=== PATIENT | male | born 1960 | race Caucasian/White ===

== ENCOUNTER → 2018-06-03 06:45 | Outpatient (CLI) | payer OTHER, SELFPAY ==
--- NOTE | 2018-06-03 07:13 | DI.CT.S_ITS ---
PROCEDURE: CT ABDOMEN PELVIS W CON INDICATIONS: recurrent upper left abdominal pain TECHNIQUE: After the administration of oral and intravenous contrast, 5 mm thick sections acquired from the diaphragms to the symphysis. 5 mm thick coronal and sagittal reformats were performed. For radiation dose reduction, the following was used: automated exposure control, adjustment of mA and/or kV according to patient size. COMPARISON: None. FINDINGS: Image quality: Excellent. ABDOMEN: Lung bases: Lung bases are clear. Heart size is normal. Solid organs: Liver is normal in size and enhancement. Diffuse hepatic steatosis is seen. Gallbladder is within normal limits the. Biliary system is non-dilated. Pancreas enhances normally. Spleen is normal in size and enhancement. No adrenal nodules. Kidneys are normal in size and enhancement, without hydronephrosis. Peritoneum and bowel: There is no evidence of obstruction. There is no gastric or small bowel wall thickening. There is a segment of wall thickening and narrowing of the lumen involving mid sigmoid colon in right lower quadrant abdomen. No other area of abnormal colonic wall thickening is noted. Nodes and vessels: No retroperitoneal or mesenteric adenopathy. Aorta and inferior vena cava are normal in caliber. Miscellaneous: No ventral hernias. PELVIS: Genitourinary: Bladder wall thickness is normal. Mildly enlarged prostate gland with mass effect of floor of urinary bladder is seen. Miscellaneous: No inguinal hernias. Mildly prominent bilateral internal lymph nodes are seen measures up to 11 mm in size in right inguinal region. Bones: No suspicious bony lesions. No vertebral body compression fractures. Degenerative disc disease throughout lower thoracic and lumbar spine is seen. IMPRESSION: 1. No finding in upper abdomen to account for patient's clinical history of left upper quadrant abdominal pain. 2. Short segment of wall thickening and narrowing of lumen involving mid sigmoid colon in right lower quadrant. Finding could represent sequela from prior infection or inflammation. Circumferential sigmoid colon wall mass cannot be entirely excluded. GI correlation and possible endoscopic evaluation is recommended. 3. Hepatic steatosis. No discrete hepatic lesion. 4. Mildly enlarged prostate gland with mild mass effect of floor of urinary bladder. Message was left for Dr. Morocho's office at 9:04 AM on 06/03/18. Dictated by: Clint Jo M.D. on 06/03/2018 at 8:42 Approved by: Clint Jo M.D. on 06/03/2018 at 9:04
== END ==
PROVIDERS: Family Provider Family Medicine; PCP Family Medicine; Visit Provider Family Medicine
DX: R10.12 Left upper quadrant pain (principal); K76.0 Fatty (change of) liver, not elsewhere classified; N40.0 Benign prostatic hyperplasia without lower urinary tract symptoms
CPT/HCPCS: 74177; Q9967

== ENCOUNTER 2018-06-21 08:17 | Day surgery (SDC) | payer OTHER, SELFPAY ==
--- NOTE | 2018-06-21 | PATH_ITS ---
[facility] Accession Number: [id number] . 01 Material submitted: . POLYP HEPATIC FLEXURE AT 70 . 02 Diagnosis: Biopsy Polyp Hepatic Flexure at 70 cm: Tubular adenoma involving both biopsy fragments. MRV/06/23/2018 . 02 Electronically signed: . Leon Bennett MD, Pathologist NPI- [id number] . 01 Gross description: . Received one formalin-filled container labeled with the patient's name and labeled polyp hepatic flexure at 70 x2 are two 0.1 to 0.2 cm portions of tissue. Entirely submitted in one cassette. ([facility]:[id number]) /[facility] . 02 Pathologist provided ICD-10: D12.3 . 02 CPT . 119765 Specimen Comment: A duplicate report has been generated due to demographic updates. Performed at: 01 [facility] [address] [id number] MD Enrique Rodríguez MD Phone: [phone] Performed at: 02 [facility] [place] [address] [place], [place] [id number] MD Reynaldo Proctor MD Phone: [phone]
[2018-06-21 08:44] VITALS: BP 126/73; PULSE 62; RESP 15; TEMP 36.9; O2SAT 94; BMI 24.7
[2018-06-21] MEDS: SODIUM CHLORIDE 0.9% 1,000 ML 200 ML IV (08:49)
--- NOTE | 2018-06-21 09:13 | PM.PREOP ---
Pre-operative Note Interval Note Pre-op Check: Yes History & Physical Reviewed by Physician and Yes Exam Performed Changes: No H&P completed within 30 days and has changed as indicated here:: Patient seen and examined. History and physical documented on the chart June 09, 2018 is unchanged. Proceed with colonoscopy today as planned. ASA Class (for procedural sedation): II
[2018-06-21] MEDS: MIDAZOLAM 5 MG/5 ML VIAL IV (09:40)
[2018-06-21] MEDS: fentaNYL 250 MCG/5 ML INJ IV (09:41)
--- NOTE | 2018-06-21 09:50 | PM.OP.ENDO ---
Operative Date/Time/Diagnoses Date of procedure: 06/21/18 Time of procedure: 09:50 Pre-op diagnosis: Abdominal pain and abnormal CT scan Post-op diagnosis: other (Diverticulosis and colon polyp) Procedure & Clinicians Study performed: 1. Sedation per surgeon 2. Colonoscopy with cold forceps polypectomy Same procedure as scheduled: Yes Indications: 58-year-old male who presented with left upper quadrant abdominal pain. After extensive evaluation a CT scan showed no obvious abnormalities other than some thickening of the rectosigmoid colon area. There was some question of neoplasm. Colonoscopy was recommended. Surgeon: Harley Jameson Procedure Notes SCOAP/Timeout: Yes Procedure in detail: After obtaining informed consent, the patient was brought to the GI suite and placed in the left lateral decubitus position on the examination table. After placement of appropriate monitors, the patient was given incremental doses of Versed and Fentanyl until an appropriate level of sedation was achieved. A time out was held per SCOAP protocol. A digital rectal examination was performed and did not reveal any masses or obstructing lesions. The colonoscope was gently passed into the patient's anus and the entire colon navigated to the level of the cecum with minimal difficulty. Terminal ileum was intubated and noted to be grossly normal. Once in the cecum, the scope was withdrawn being sure to go before and beyond all mucosal folds and prominences and get an excellent examination. The findings are noted above. At the level of the rectal vault, the scope was retroflexed and the internal anal canal was examined. The scope was straightened and air aspirated from the colon. The instrument was removed from the patient's body and the procedure was concluded. The patient was allowed to awaken from sedation without difficulty and taken to the post-anesthesia care unit in good condition. Scope withdrawal time: 9:05 min Sedation minutes: 20 Findings: diverticulosis, polyp and other findings (Otherwise normal colon and rectum without evidence of colitis or other abnormalities) Specimen(s): other (Hepatic flexure polyp at 70 cm) Complications: none Recommendations: Colonscopy in 5 years, High fiber diet and Will call with biopsy results Plan for aftercare: 1. Discharge to home Follow up: as needed Disposition: PACU
[2018-06-21 10:01] VITALS: BP 131/73; PULSE 71; RESP 16; TEMP 36.6; O2SAT 95
--- NOTE | 2018-06-21 10:16 | SUR.PHASEII ---
d/c instructions discussed with both pt and his , both voiced an understanding. pt dressed when ready and left in stable condition
== END 2018-06-21 10:20 | disposition home or self-care (01) ==
PROVIDERS: PCP Family Medicine; Visit Provider Surgery
PROC: 0DJD8ZZ Inspection of Lower Intestinal Tract, Via Natural or Artificial Opening Endoscopic (ICD-10-PCS; CPT 45378; principal; 2018-06-21 09:45)
DX: R10.9 Unspecified abdominal pain (principal); R93.3 Abnormal findings on diagnostic imaging of other parts of digestive tract; K57.30 Diverticulosis of large intestine without perforation or abscess without bleeding; D12.3 Benign neoplasm of transverse colon
CPT/HCPCS: 45380; 99152; J2250; J3010

== ENCOUNTER → 2018-07-13 08:25 | Outpatient (CLI) | payer OTHER, SELFPAY ==
[2018-07-13 08:59] LABS: Hematocrit 41.7 % (41-53); Hemoglobin 14.4 g/dL (13.5-17.5); Mean Corpuscular HGB Conc 34.6 % (30-36); Mean Corpuscular Volume 92.5 fL (80-100); Platelet Count 182 X10^3/uL (150-400); Red Blood Cell Count 4.51 X10^6/uL (4.5-5.9); Red Cell Distribution Width 12.9 % (11.6-14.8); White Blood Cell Count 3.4 X10^3/uL (4.5-11.0)
== END ==
PROVIDERS: PCP Family Medicine; Visit Provider Orthopaedic Surgery
DX: Z01.818 Encounter for other preprocedural examination (principal)
CPT/HCPCS: 36415; 85027; 93005

== ENCOUNTER 2018-07-27 07:45 | Inpatient (IN) | payer OTHER, SELFPAY ==
[2018-07-20 14:00] VITALS: BMI 27.1
[2018-07-27] VITALS (15 sets, daily range): BP systolic 135–170; BP diastolic 83–105; PULSE 59–98; RESP 9–19; TEMP 36.3–37.1; O2SAT 90–100; BMI 27.0
--- NOTE | 2018-07-27 | DI.RAD.S_ITS ---
PROCEDURE: XR CERVICAL SPINE 2V OR 3V INDICATIONS: C4-5, 5-6, 7-T1 DISCECTOMY AND FUSION TECHNIQUE: 3 view(s) of the cervical spine were acquired. COMPARISON: [facility], CT, T-SPINE WITHOUT CONTRAST, 07/31/2017, 9:55. [facility], CT, THORAX WITHOUT CONTRAST, 09/15/2017, 8:05. [facility], MR, C-SPINE WITHOUT CONTRAST, 09/15/2017, 9:12. [facility], , XR CERVICAL SPINE 2 OR 3 VIEWS, 10/26/2017, 9:04. FINDINGS: 3 intraoperative fluoroscopy images demonstrate discectomy and anterior fusion at C5-C5, C5-C6 and C7-T1. IMPRESSION: Discectomy and anterior fusion in cervical spine. Dictated by: Morgan Ferrara M.D. on 07/27/2018 at 14:44 Approved by: Morgan Ferrara M.D. on 07/27/2018 at 14:49
--- NOTE | 2018-07-27 08:27 | SUR.PREOP ---
pt reports has baseline numbness and tingling in the right hand.
[2018-07-27] MEDS: LACTATED RINGERS 1,000 ML 42 ML IV ×2 (08:45→12:00)
--- NOTE | 2018-07-27 09:03 | PM.OP.1 ---
Operative Date/Time/Diagnoses Date of procedure: 07/27/18 Time of procedure: 13:26 Pre-op diagnosis: Cervical stenosis with myelopathy Post-op diagnosis: same Procedure & Clinicians Procedure: C4-5, C5-6, C7-T1 posterior instrumented fusion C4-5, C5-6, C7-T1 ACDF with cages Iliac crest bone graft aspirate Use of microscope Same procedure as scheduled: Yes Indications: [age] year old male with intractable symptoms and progressive myelopathy from stenosis. They had failed conservative management and requested operative intervention. Risks and benefits of surgery were discussed and appropriate consents were obtained. Surgeon: Koko More Dinking Machine Operator: Flavia Barney Anesthesia Type: General Operative Notes Findings: None Closure Type: primary Specimen(s): none sent Implants & Drains: Dtrax posterior cages and screws Sofia LDR PADDY-C anterior Applied: catheter Estimated Blood Loss (mL): 20 Blood products transfused: none Procedure in detail: The patient was brought to the operating room and intubated on the stretcher. Time-out was performed. There were then rolled over to the well-padded prone position on chest rolls. Two views of fluoroscopy were taken to confirm our positioning. The neck was then prepped and draped in the standard sterile fashion. Preoperative antibiotics were given. Using fluoroscopy, we localized for planned incisions. Two small 8 mm horizontal incisions were made over the lateral masses approximately 2 fingers below our planned surgical site. We then spread down and opened up the fascia. Then percutaneously placed our Steinmann pin through the soft tissue into the facet joint at C4-5 under fluoroscopic visualization. We used the reamer to decorticate the lateral masses compromising the facet. A trocar was placed over the Steinmann pin into the facet and then the pin was removed. We used a rasp to decorticate the facet joint itself. We then filled the DTrax cage with Osteocell bone graft and impacted it into the facet joint at C4-5 under fluoroscopic guidance. We then took the lateral mass screw and placed it through the cage and then into the lateral mass for the posterior screw fixation. The inserter promotional item was removed and we packed more bone graft down the trocar covering the lateral mass. This was done bilaterally. This completed the instrumented posterior fusion at C4-5. We then went to the next level at C5-6. The same procedure was performed with preparation, placement of the cage with bone graft, and placement of the screw for bilateral instrumented posterior fusion bilaterally at C5-6. We made 2 more incisions 3 cm below the previous ones. Again we placed a Steinmann pin and then decorticated the lateral mass, placed our trocar, decorticated the facet with a rasp, and placed our cages with bone graft and screws at C7-T1 for the posterior fusion at this level. We are only able to get a cage on the right-hand side. Anatomy on the left would not allow was to pass the pin. The wounds were irrigated. The skin was closed and a sterile dressing placed. The patient was then rolled over to the table in the supine position and positioned for the anterior surgery. The arms were tucked and a shoulder roll was placed. The neck and left iliac crest were prepped and draped in the standard sterile fashion. A 3 cm oblique incision was made on the left side of the neck along the skin fold. Bovie was used to split the platysma. We then bluntly dissected a standard anterolateral approach to the precervical fascia. A marker was placed and x-ray taken to confirm our positioning. We then used the Bovie to the subperiosteally lift up the longus colli muscles. Self-retaining retractors were placed. We then placed [place] pins and distracted across the C7-T1 disc space. We brought in the microscope. A complete anterior discectomy was performed at C7-T1 using a combination of scalpel, curettes, pituitaries, and Kerrison rongeurs. The bur was used to take down the posterior osteophytes as well as decorticate the disc space. We then released the PLL and used the Kerrison to remove any further posterior osteophytes and disc material. At the end a nerve hook could be swept cephalad caudally and out the neural foramen and everything was open. We trialed for our cages. A small stab incision was made over the left iliac crest. We placed a Jamshidi aspiration needle into the iliac crest and aspirated several mL of bone marrow graft. We then took our Sofia LDR PADDY-C cage and packed it with Osteocell, and mixed in the bone marrow aspirate. The cage was then placed into the disc space under fluoroscopic guidance. The 2 locking plates were placed through the cage for fixation. This completed the ACDF at C7-T1. We then went to the next level at C5-6 and then C4-5. Again a complete diskectomy was performed including taking down the PLL and posterior osteophytes and disc material. The endplates were prepped with a bur. We trialed and then packed our PADDY-C cage with the bone graft and then placed into the disc space. The locking plates were placed as well. This completed the ACDF at C5-6 and C4-5. Final x-rays were taken. The wound was copiously irrigated. There was no bleeding. The carotid was bleeding nicely. The platysma was closed. The superficial skin were closed. A Steri-Strip was placed over the iliac crest incision. Sterile dressings were placed. The patient was then extubated and brought to the recovery room without complication. Complications: none Condition: stable Disposition: PACU Plan for aftercare: Inpatient. Up with physical therapy. Soft collar for comfort.
--- NOTE | 2018-07-27 09:33 | PC.NURSE ---
Day shift: Pt not on this AC unit at this time.
[2018-07-27] MEDS: CEFAZOLIN 2 GM/100 ML FROZ.PIGGY IV ×2 (09:55→19:13)
--- NOTE | 2018-07-27 11:04 | SUR.OPER ---
Prone on padded OR bed, head in foam head support, gel chest rolls, gel pad under knees, pillow under lower legs, toes free of pressure, arms secured at sides with gel pads and sheet wrapped and secured with towel clips. Safety belt at thigh.
--- NOTE | 2018-07-27 11:06 | SUR.OPER ---
Supine on padded OR bed, head on gel donut, towel rolled vertically between scapulae, arms wrapped in gel and tucked at sides, legs uncrossed, safety belt at thigh, tape over blanket over lower legs .
[2018-07-27] MEDS: SODIUM CHLORIDE 0.9% 1,000 ML, GENTAMICIN 80 MG IRR (11:19)
[2018-07-27] MEDS: THROMBIN (BOVINE) 5,000 UNIT VIAL 5000 UNIT TOP (12:15)
[2018-07-27] MEDS: fentaNYL 100 MCG/2 ML INJ 50 MCG IV ×2 (13:58→14:07)
[2018-07-27] MEDS: HYDROMORPHONE 2 MG INJ 0.5 MG IV ×3 (14:04→14:15)
--- NOTE | 2018-07-27 14:12 | SUR.PHASEI ---
drsg on left above hip observed to be c/d/i.
--- NOTE | 2018-07-27 14:13 | SUR.PHASEI ---
pt observed to have unequal strength on left hand as opposed to strength in right hand. pt states this is baseline for him. Reported this to Dr. More and no further new orders.
--- NOTE | 2018-07-27 14:17 | SUR.PHASEI ---
Bedside report given to MATTHEW Hernandez. pt in stable condition, vss. Pt talking to Rn at bedside. Transfered care of pt to MATTHEW Hernandez at this time.
[2018-07-27] MEDS: LACTATED RINGERS 1,000 ML 125 ML IV (15:04)
[2018-07-27] MEDS: HYDROMORPHONE 1 MG INJ 0.5 MG IV ×2 (15:04→19:28)
--- NOTE | 2018-07-27 15:08 | SLP.IPNOTE ---
PT/OT/ST orders received. CERTIFIED FAMILY MEDIATOR spoke with the patient briefly after getting orders. Family present. Stated that he had just gotten to the floor about 10 minutes ago and had not yet seen his nurse. Not ready for evaluation at this time. CERTIFIED FAMILY MEDIATOR will follow up later today, if able, or tomorrow. No evaluation completed yet.
[2018-07-27] MEDS: HYDROCODONE/ACET 5/325 TABLET 2 TAB PO ×2 (16:48→21:34)
[2018-07-27] MEDS: CELECOXIB 200 MG CAPSULE 400 MG PO (16:49)
--- NOTE | 2018-07-27 16:56 | PC.NURSE ---
Post-op: Late entry Arrived to room 218 at 1435. Drowsy but awake, oriented X3. CMS++. Reports numbness/tingling in L hand which was present prior to surgery. Dressing to anterior neck and L hip C/D/I. Dressing to posterior neck with small spot shadow drainage on the lower left hand portion and it was within the previously outlined margins. Soft collar in place. Denied N/V, given juice and ice to start with which he was able to swallow without issue. Sats on 1L O2 92-94%, cont pulse ox in place. Medicated with 0.5 mg IV Dilaudid for 8/10 neck pain. IV fluids initiated, IV site in L wrist WNL. Batista to gravity, urine clear yellow. Oriented to room and call light and encouraged to make needs known. Bed alarm active.
--- NOTE | 2018-07-27 19:53 | PC.NURSE ---
pt AO, pleasant, and receptive to care. Able to titrate 02 from 1L, NC, to 0 (O2 sat off oxygen is 95%), continuous pulse ox is on. c/o 8:10 pain, 2 [place] 5 tabs administered at 1650 and brought pain down to a 5. Needed to administer Dilaudid 0.5IV for 7:10 around 1920. No nausea, able to keep full liquid down, no swallowing issues. Reporting a majority of his pain in the back of his neck. IV infusing with intermittent ABX. Tolerating well. Family at bedside for start of shift, and all have since left. Pt able to make small repositional changes in bed, utilizing bed to reposition as well.
[2018-07-27] MEDS: CELECOXIB 200 MG CAPSULE PO (21:33)
[2018-07-27] MEDS: DOCUSATE 100 MG CAPSULE PO (21:34)
[2018-07-27] MEDS: SENNOSIDES 8.6 MG TABLET 17.2 MG PO (21:34)
[2018-07-27] MEDS: GABAPENTIN 300 MG CAPSULE PO (21:35)
[2018-07-28] VITALS (12 sets, daily range): BP systolic 141–170; BP diastolic 86–108; PULSE 59–80; RESP 16–18; TEMP 36.3–36.8; O2SAT 90–97
[2018-07-28] MEDS: HYDROMORPHONE 1 MG INJ 0.5 MG IV (00:07)
[2018-07-28] MEDS: LACTATED RINGERS 1,000 ML 125 ML IV ×2 (00:08→06:16)
[2018-07-28] MEDS: CEFAZOLIN 2 GM/100 ML FROZ.PIGGY IV (02:21)
[2018-07-28] MEDS: OXYCODONE IR 5 MG TABLET 10 MG PO (02:26)
[2018-07-28] MEDS: HYDROCODONE/ACET 5/325 TABLET 2 TAB PO ×2 (06:14→11:36)
--- NOTE | 2018-07-28 08:00 | PM.PNPO.1 ---
Subjective Date Patient Seen: 07/28/18 Time Patient Seen: 08:00 Interval history: He switch back over to Percocet has been doing better with pain control with this. He is able to swallow okay. Pain is about a 5. Some headache. Exam Vital Signs (past 8 hours): - 07/28/18 03:18 07/28/18 04:45 07/28/18 06:24 Temperature 97.4 F L Pulse Rate 80 Respiratory Rate 17 Blood Pressure 141/86 H Pulse Oximetry 94 95 95 Oxygen Delivery Method Nasal Cannula Oxygen Flow Rate 0 Const Orientation: alert and oriented x3 Back/Spine/Pelvis Other: Anterior dressing clean dry intact. Posterior dressing moderate dry drainage 5/5 motor both upper extremities except for 4/5 left motor vehicle technician and 2/5 left intrinsics, improved compared to preop Assessment & Plan Post-op Postoperative Procedures Operation Date: 07/27/18 09:15 Actual Procedures Side Surgeon p C4-5, C5-6, C7T1 Anterior cervical discectomy & fusion w/Posterior Instru. Not Applicable Koko More MD overall is doing well. Continue to mobilize with physical therapy today. Probable discharge home tomorrow.
--- NOTE | 2018-07-28 08:54 | PT.IIE ---
Addendum entered and electronically signed by Jacqueline Navarro PT 07/28/18 13:19: This is to certify that I have reviewed this documentation and POC Original Note: Current Diagnoses Other spondylosis with myelopathy, cervical region (07/27/18) Radiculopathy, cervical region (07/27/18) Surgery Performed Operation Date: 07/27/18 09:15 Actual Procedures p C4-5, C5-6, C7T1 Anterior cervical discectomy & fusion w/Posterior Instru.(Not Applicable) - Koko More MD Surgical History (Last Reviewed 07/27/18 @ 16:50 by Femi Chapman, PT, [place]) History of arthroplasty of left knee (Acute 06/25/15) History of arthroplasty of right knee (Acute ~12/2014) History of arthroscopy of both knees (Acute) History of colonoscopy (Acute) S/P cervical spinal fusion (Acute ~1999) History of tonsillectomy History of vasectomy (~1988) Status post appendectomy (~1989) Status post hernia repair (~1984) Physical Therapy Inpatient Evaluation/Re-Eval M1 PT/OT-IP Prior Functional Status Start: 07/28/18 11:28 Freq: NEEDED Status: Active Protocol: Document 07/28/18 08:54 (Rec: 07/28/18 12:28 [email or web address]) Medical Review Prior Functional Status Medical History Reviewed Yes Communication No deficits noted. Mobility and Gait Pt previously community ambulator, no AD including driving and self care. Social History Household Members spouse Living Arrangements House Number of Floors (Floors) Two Floors Number of Stairs To Enter/Railing? 15 steps R rail to enter. Pt lives entirely on main floor and does not plan to access 2nd floor. 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 M2 PT-IP Current Condition Start: 07/28/18 11:28 Freq: NEEDED Status: Active Protocol: Document 07/28/18 08:54 (Rec: 07/28/18 12:28 [email or web address]) Physical Therapy Current Condition Current Condition Evaluation Date 11/14/18 Treatment Diagnosis C spine discectomy/fusion; difficulty walking Onset Date 07/27/18 Precautions Cervical Spine Precautions Soft Collar for Comfort No Heavy Lifting Log Roll Brace Soft collar M3 PT-IP Subjective Start: 07/28/18 11:28 Freq: NEEDED Status: Active Protocol: Document 07/28/18 08:54 (Rec: 07/28/18 12:28 [email or web address]) Subjective Physical Therapy Visit Type Type Initial Evaluation Visit Start Time 08:54 Visit Stop Time 09:22 Total Visit Minutes 28 Number of POLLUTION CONTROL TECHNICIAN Visits 0 Physical Therapy Visit Comments Patient Comments Pt agreeable to mobilize with PT Patient Goals Pt planning to go home with at d/c Therapy Pain Assessment Pain When Pain Assessed During Mobility Pain Present Pain Present Pain Reported Location Head Scale Used 7/10 at rest and during mobility Pain Management Techniques Modification of Treatment Re-positioning Timing of Activity with Medications M4 PT-IP Mobility and Gait Start: 07/28/18 11:28 Freq: NEEDED Status: Active Protocol: Document 07/28/18 08:54 (Rec: 07/28/18 12:28 [email or web address]) PT-Bed Mobility Assessment Rolling Type of Rolling Log Rolling Roll to Right Level of Assist Standby Assistance Supine to Sit Supine to Sit Standby Assistance Sit to Supine Sit to Supine Standby Assistance Scooting Scooting to Edge of Bed Standby Assistance PT-Transfer Assessment Sit to and From Stand Sit to and from Stand Standby Assistance Equipment Transfer Assistive Device Gait Belt Front Wheeled Walker Orthotic/Prosthetic Devices or Brace: Yes Transfers Transfer Destination Chair Transfer Technique Ambulates between surfaces Comments Mobility Comments Resting/supine BP 170/99, HR 78. Log roll <> side lying is SBA min cues. Side lying <> sit SBA no cues. Pt states some lightheadedness with sitting up. BP 163/103 HR 72. Pt states lightheadedenss subsides and agress to attempt standing. Sit <> stand is SBA no cues. After march in place 20 steps with deep breathing, BP 159/111 HR 72. Pt instructed to return to sitting and nurse notified. After seated rest and deep breathing ~3 mins. BP 164/98. Pt agreeable to mobilize to recliner. Gait Assessment Gait Gait Assistance Required: Standby Assistance Distance (Feet) 15 Able to Maintain Weight Bearing Status Yes During Gait Assistive Devices Assistive Device Gait Belt Front Wheeled Walker Orthotic/Prosthetic Devices or Brace: No Gait Deviations General Gait Pattern Within Normal Limits Factors Limiting Gait Function Factors Limiting Gait Function Decreased Activity Tolerance Decreased Strength Limited Range of Motion Pain Poor Balance Poor Safety Awareness Comments Gait Comments Pt ambulates 15 ft to recliner with fww SBA. Gait pattern within normal limits; however pt slow and guarded. PT-Balance Assessment Sitting Balance and Reactions Static Sitting Balance Ability Good Dynamic Sitting Balance Ability Good Standing Balance and Reactions Static Standing Balance Ability Good Dynamic Standing Balance Ability Fair Device Used fww M5 PT-IP Objective Assessments Start: 07/28/18 11:28 Freq: NEEDED Status: Active Protocol: Document 07/28/18 08:54 (Rec: 07/28/18 12:28 [email or web address]) Orientation Orientation/Cognition Level of Alertness Alert Orientation Name Age Birthday Month Date Year Day of Week Place Situation Safety Awareness Decreased Safety Awareness Gross Range of Motion Lower Extremity ROM Assessment Within Functional Limits Strength Upper Extremity Strength Assessment Left Impaired Lower Extremity Strength Assessment Within Functional Limits Comments Strength 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 Sensation Assessment Sensation Gross Sensation Left UE Impaired Sensation Description Tingling Comments Sensation Comments Pt states slight tingling in LUE; however he reports significanly decreased compared to prior surgery. M6 PT-IP Treatment Start: 07/28/18 11:28 Freq: NEEDED Status: Active Protocol: Document 07/28/18 08:54 (Rec: 07/28/18 12:28 [email or web address]) Physical Therapy Treatment Education Education Provided Precautions Post-Op Packet Safety M7 PT-IP Assessment and Plan Start: 07/28/18 11:28 Freq: NEEDED Status: Active Protocol: Document 07/28/18 08:54 (Rec: 07/28/18 12:28 [email or web address]) PT Summary Assessment and Plan Potential Rehabilitation Potential Good Status of Condition at Evaluation Evolving Summary Impairments Pain ROM Strength Balance Sensation Bed Mobility Transfers Gait Activity Tolerance Progress Towards Goals Progressing Toward Goals Assessment Summary Pt s/p C-spine fusion/ discectomy with difficulty walking. He ambulated 15 ft in room SBA and was able to perform log roll SBA with min cues, however had increased in BP outside of normal limits. Nurse was notified and pt was left in room with nursing at the end of this session. Prior to discharge pt needs to complete stair training and progress ambulation with least restrictive device or no AD. At that time, we anticipate the pt will be appropriate to d/c to home with 24/7 assist once he is medically stable. Goals Bed Mobility Goal Independent Transfer Goal Independent Gait Goal Standby Assistance Gait Distance 150 Other Goals Up/down 15 steps R rail SBA as needed to acess home. Ambulation 150 ft with least restrictive or no AD. Days to Meet Goals 3 Frequency of Treatment Frequency Of Treatment Twice a Day Treatment Plan Physical Therapy Treatment Plan Bed Mobility Training Transfer Training Gait Training Therapeutic Exercise Balance Retraining Post Op Education Discharge Planning Hot or Cold Pack Neuromuscular Re-ed Coordination Retraining Manual Therapy Other Recommendations and Next Treatment Stair climbing. Ambulation Focus with least restrictive device (last session used fww but pt likely to progress to no AD) Recommendations To Nursing Amount of Assist Needed 1 Person Assist Discharge Recommendations PT Discharge Recommendations Home with 24/7 Assist
--- NOTE | 2018-07-28 08:54 | ST.IPSCREEN ---
DRUG ENFORCEMENT AGENT present for swallow screen following ACDF surgery. Patient reported feeling pain, but has not had difficulty swallowing. Able to tolerate regular diet with thin liquids without difficulty, but he has a small appetite. At this time, he has no concerns about his swallow. DRUG ENFORCEMENT AGENT provided information regarding swallowing/voice following ACDF and recommended that he speak with his PCP should he experience any difficulties in the future. He agreed. Screen completed. No eval needed at this time.
[2018-07-28] MEDS: HYDROMORPHONE 0.5 MG INJ IV (09:15)
[2018-07-28] MEDS: CELECOXIB 200 MG CAPSULE PO ×2 (09:21→21:18)
[2018-07-28] MEDS: DOCUSATE 100 MG CAPSULE PO ×2 (09:22→21:18)
--- NOTE | 2018-07-28 09:58 | OT.IP.EVAL ---
Current Diagnoses Other spondylosis with myelopathy, cervical region (07/27/18) Radiculopathy, cervical region (07/27/18) Surgery Performed Operation Date: 07/27/18 09:15 Actual Procedures p C4-5, C5-6, C7T1 Anterior cervical discectomy & fusion w/Posterior Instru.(Not Applicable) - Koko More MD Surgical History (Last Reviewed 07/27/18 @ 16:50 by Femi Chapman, PT, [place]) History of arthroplasty of left knee (Acute 06/25/15) History of arthroplasty of right knee (Acute ~12/2014) History of arthroscopy of both knees (Acute) History of colonoscopy (Acute) S/P cervical spinal fusion (Acute ~1999) History of tonsillectomy History of vasectomy (~1988) Status post appendectomy (~1989) Status post hernia repair (~1984) Occupational Therapy Inpatient Evaluation/Re-Eval M1 PT/OT-IP Prior Functional Status Start: 07/28/18 11:28 Freq: NEEDED Status: Active Protocol: Document 07/28/18 09:58 PJ (Rec: 07/28/18 15:49 PJ [id number]) Medical Review Prior Functional Status Medical History Reviewed Yes Communication No deficits noted. Mobility and Gait Pt previously community ambulator, no AD. Activities of Daily Living and IADL's Pt reports was assisting him with buttoning, tying shoes, donning socks for past month due to decreased L hand strength and coordination. assists with all IADLS. Pt was driving. 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 Pt states his L hand was so weak, he could not hold a piece of paper using lateral pinch with L hand. Prior Functional Level (Other details) Pt plans to take 2-3 weeks off work, then return to light duty. Social History Household Members spouse Living Arrangements House Number of Floors (Floors) Two Floors Number of Stairs To Enter/Railing? 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 M2 OT-IP Current Condition Start: 07/28/18 15:17 Freq: Status: Active Protocol: Document 07/28/18 09:58 PJM (Rec: 07/28/18 15:49 PJ [id number]) Occupational Therapy Current Condition Current Condition Evaluation Date 07/28/18 Treatment Diagnosis decreased self care, mobility, L hand function s/p C4-T1 ant /post fusion Diagnosis Onset Date 07/27/18 Post Operative Precautions Cervical Spine Precautions Soft Collar for Comfort No Heavy Lifting Log Roll M3 OT- IP Subjective and Pain Start: 07/28/18 15:17 Freq: Status: Active Protocol: Document 07/28/18 09:58 PJM (Rec: 07/28/18 15:49 [facility] [id number]) OT- Subjective Occupational Therapy Visit Type Type Initial Evaluation Visit Start Time 09:20 Visit Stop Time 09:58 Total Visit Minutes 38 Occupational Therapy Visit Comments Patient Comments My L hand is already stronger than it was before surgery. Patient/Caregiver Goals to improve L hand strength and coordination and return to work OT Pain Assessment Pain When Pain Assessed After Treatment Pain Present Pain Present Pain Reported Location Neck Intensity 4 Scale Used Numeric (1 - 10) Description Aching Acute Pain Behaviors Guarding Management Techniques Distraction Re-positioning Timing of Activity with Medications M4 OT- IP ADL's Start: 07/28/18 15:17 Freq: Status: Active Protocol: Document 07/28/18 09:58 PJM (Rec: 07/28/18 15:49 [facility] [id number]) OT [id number]-[id number] General Evaluation Diet Level for Self-Feeding softer diet Self-Feeding Ability Independent OT ADL-Grooming General Evaluation Grooming Ability Standby Assistance Areas Needing Assistance Face Washing Comments OT Grooming Comments seated in chair OT ADL-Oral Care Comments Oral Care Comments pt declined this session OT ADL-Dressing General Eval Lower Body Dressing Ability Moderate Assistance Areas Needing Assistance Managing Buttons Managing Zippers/Fasteners Socks Shoes Comments OT Dressing Comments Pt has significantly decreased L hand strength and dexterity that interferes with self care tasks Began education re: body mechanics. Provided education re: button hook and body mechanics for dressing. OT ADL-Toileting General Evaluation Toileting Ability Total Assistance Comments OT Toileting Comments pt still has watkins in place OT ADL-Bathing Comments OT Bathing Comments to be assessed as activity level improves M5 OT- IP IADL's Start: 07/28/18 15:17 Freq: Status: Active Protocol: Document 07/28/18 09:58 PJM (Rec: 07/28/18 15:49 [facility] [id number]) OT-Instrumental Activities of Daily Living Deficits IADL Deficits Identified Deficits Home Safety Awareness Awareness of Need for Assistance at Home Good Awareness Ability to Problem Solve Emergency Able to Problem Solve Situations Medication Management Medication Management No Deficits Identified Money Management Money Management No Deficits Identified Meal Preparation Meal Preparation Caregiver Provides Assist Meal Preparation Comments assists PRN Soap Slabber Soap Slabber Caregiver Provides Assist Soap Slabber Comments assists PRN Driving Driving Caregiver Provides Assist Driving Comments can assist until pt able M6 OT- IP Functional Cognition Start: 07/28/18 15:17 Freq: Status: Active Protocol: Document 07/28/18 09:58 PJM (Rec: 07/28/18 15:49 [facility] [id number]) Cognitive Factors Limiting Selfcare Function Cognitive Ability Level of Alertness Drowsy Patient Orientation Name Age Birthday Month Date Year Day of Week Place Situation Attention Span Ability Capable of Focused Attention Ability to Follow Commands Able to Follow One Step Commands Memory Description No Deficits Noted Cognitive Comments Cognitive Assessment Comments Pt drowsy this session from IV pain meds and having difficulty with sustained attention, but oriented. OT- Vision and Hearing OT- Hearing Assessment OT- Hearing Assessment WFL OT- Vision Assessment Visual Acuity Glasses For Reading Vision Assessment Comments Pt denies any recent vision changes. M7 OT- IP Mobility and Balance Start: 07/28/18 15:17 Freq: Status: Active Protocol: Document 07/28/18 09:58 PJM (Rec: 07/28/18 15:49 [facility] [id number]) OT-Transfer Assessment Comments Mobility Comments See P.T. notes OT- Gait Assessment Comments Gait Ability Comments See P.T. notes OT- Balance Assessment Comments Other Balance Tests/Deviations/Treatment See P.T. notes : M8 OT- IP Objective Assessments Start: 07/28/18 15:17 Freq: Status: Active Protocol: Document 07/28/18 09:58 PJM (Rec: 07/28/18 15:49 [facility] [id number]) OT Gross Range of Motion Upper Extremity Range of Motion Assessment Left Impaired ROM Impairments RUE WFL L UE WFL except for decreased AROM L hand due to intrinsic weakness. OT Strength Upper Extremity Strength Assessment Left Impaired Hand Significant L hand intrinisic weakness noted. See below for details Hand Colors Custodian Strength Hand Dominance Right Right Colors Custodian Strength (lbs) (lbs) 130 Left Colors Custodian Strength (lbs) (lbs) 6 Comments Strength Comments R Lateral Pinch: 20 lbs L Lateral Pinch .5 lbs R Palmar Pinch: 20 lbs L Palmar Pinch 0 lbs R Tip Pinch: 13 lbs L Tip Pinch 0 lbs L wrist flex/ext is 4+/5L L Thumb MP flex: 2/5, Thumb IP flex: 0/5, Thumb MP/IP ext 3-/5 Thumb abd/add 3-/5, Thumb opposition 2-/5. L mass finger flex: 3+/5, finger ext: 3-/5, lumbricals 3-/5, finger abd/add 2/5 OT- Coordination Assessment Comments Coordination Comments L Hand function impaired by significant weakness in thumb and intrinsics. Pt has functional mass grasp and release using tenodesis to assist at times. He has functional lateral pinch, but has difficulty with thumb opposition to index and middle fingers due to thumb weakness , and unable to oppose to ring and little fingers. OT-Muscle Tone Assessment Muscle Tone WNL Yes OT Sensation Assessment Comments Summary Comments Pt reports L hand numbness in 4th and 5th fingers Edema Edema Absent M9 OT- IP Assessment and Plan Start: 07/28/18 15:17 Freq: Status: Active Protocol: Document 07/28/18 09:58 PJM (Rec: 07/28/18 15:49 PJM [id number]) OT Summary Assessment and Plan Potential Rehabilitation Potential Good Analytic Complexity at Evaluation Moderate Summary OT Impairments Pain Range of Motion Strength Balance Coordination Sensation Functional Mobility Grooming Dressing Toileting Bathing Toilet Transfers Shower Transfers Assessment Summary Moderate complexity OT assessment completed on this pt s/p multi level cervical fusion with significant L hand weakness and need for specific muscle testing of hand. Pt is first day post op and currently has performance deficits in activity tolerance , functional mobility, grooming, dressing, bathing and toileting due to pain and significant L hand weakness and decreased functional use. 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 Pt will benefit from OT services here to address the goals below. Anticipate pt will d/c home with assist from his who works 2 days /week. Goals Grooming Goal Independent Dressing Goal Minimal Assistance Toileting Goal Independent Bathing Goal Minimal Assistance Toilet Transfer Goal Independent Shower Transfer Goal Standby Assistance Patient/Caregiver Education Goal Demonstrate Post-Op Precautions Caregiver Independent Assisting Patient OT-Other Goals Pt will correctly perform L hand theraputty exercises for L hand strengthening. Frequency of Treatment Frequency Of Treatment Once a Day Treatment Plan OT Treatment Plan ADL Training Functional Mobility Therapeutic Exercises Patient/Family Education Discharge Planning Other Treatment Recommendations and Next theraputty ex, self care Treatment Focus skills Discharge Recommendations OT Discharge Recommendations Home with Assistance Other Discharge Recommendations out pt hand therapy when MD approves
--- NOTE | 2018-07-28 11:04 | PC.NURSE ---
Addendum entered by Kaylin Leal R.N. 07/28/18 11:56: pt reports 'pounding' headache un relieved by norco or dilaudid. Dr. More notified. Will keeping pt's room dark and cool cloth over forehead. Original Note: agree with Bernadine MARADIAGA physical assessment. pt with BP 180's/110's getting to side of bed. Dilaudid 0.5mg IV given for breakthrough pain. pt states had relief from IV dose. up in chair. IVF saline lock
--- NOTE | 2018-07-28 11:57 | CM.DANOTE ---
Discharge Planning/Care Management Met with patient: notified of CM team role. Patient is currently pending PT/OT eval. Patient is expecting to discharge home with supportive and does not expect any discharge needs. Plan: anticipate home with family when stable. CM team to follow up after PT/OT evals to better determine discharge needs. CM Discharge Assessment Start: 07/28/18 11:54 Freq: Status: Active Protocol: Document 07/28/18 11:54 (Rec: 07/28/18 11:57 [id number]) Discharge Planning Assessment Assigned Value Advisor HUMEBRTO Dillon Advance Directives? No History Provided By Patient Medical Record Has Patient been admitted in last 30 No days? Prior Living Arrangements House Household Members spouse Type of transporation used prior to Drives own vehicle admit Independent with ADL's Yes Is patient alert and oriented? Yes Comment assisted patient with buttons on clothes. Caregiver for Another No Discharge Plan Home Transportation Arrangement Spouse to provide. Whiteboard Updated in Patient Room with Yes name and ext. # of Value Advisor Review Status In Process Please Provide Date Initial DC 07/28/18 Assessment Was Performed Next Review Type Continued Stay Review Pre-Anesthesia Assessment Start: 07/20/18 14:00 Freq: Status: Complete Protocol: Document 07/20/18 14:00 CAB (Rec: 07/20/18 14:25 CAB [id number]) Pre-Anesthesia Assessment Patient Information Reviewed Via Phone Assessment Assessment Completed With Patient H&P Completed Within 30 Days Yes Lab Results CBC EKG Comment Labs/EKG at 07/13/18, EKG- no change from prev '17, ECHO 07/22/18 Primary Care Provider Cruz Morocho Seen Specialist in Last 12 Months Yes Specialist Seen General surgeon Orthopedist Primary Language Upper Sorbian Senior Software Engineer Required No Height 180.34 cm Weight 88.451 kg Body Mass Index (BMI) 27.1 Hearing Ability Normal Visual Assist Glasses Dentition Type Dental Implants Barriers to Learning None Other Aids No Hx Anesthesia Reactions No Hx Family Anesthesia Reaction No Hx Malignant Hyperthermia No Hx Blood Transfusions No Anesthesia Review Requested No [employer] Inspecting Dispatcher No alcohol intake current alcohol intake frequency a few times a week Smoking Status Never smoker Substance Use Type marijuana Comment Pt advised not to smoke marijuana 24 hours prior to surgery Pain Present Pain Reported Musculoskeletal Symptoms Limited Range of Motion Neck Pain Numbness History of Falling (Recent or History of No ) Patient is completely paralyzed or No completely immobile Mental Status Oriented to own ability Is patient on oxygen? No Does patient have ALVES/SOB No Hx Sleep Apnea No Suspected Sleep Apnea No Currently Taking a Beta Julio No Can You Climb a Flight of Stairs Without Yes SOB Hx Chest Pain No Hx SOB No Hx Syncope or Dizziness No Anti-Coagulant Therapy No Has a [employer] Engineer No Cardiac Testing Yes: ECHO 07/22/[facility] to be scanned Hx Pacemaker/ICD No Pacemaker Rep Required? No Cardiac Clearance Received Not Applicable Comment ECHO for abnormal EKG Diet Type At Home Regular dysphagia No Urinary Catheter Present No Hx Urinary Self Catheterization No Diabetes No Hx Drug Resistant Organism No Presence of External or Internal Medical No Devices Have you traveled outside the [facility] States in the last 30 days? Marital Status Lives With spouse Prior Living Arrangements House Number of Floors (Floors) Two Floors Number of Stairs To Enter/Railing? 15 stairs, railing present Support System Child/Children Spouse Does the Patient Have Assistance After Yes Surgery Patient Discharge Plan Description Return Home Comment Pt advised 2 night length of stay per surgeon's office Feels Safe in Current Environment Yes Been Physically Hurt or Threatened By a No Person in Current Environment Do you have thoughts of harming yourself None or others? Are you currently considering suicide? No Do you have a plan to hurt yourself or No Plan others? Do You Have Any Spiritual Beliefs That No May Affect Your HC Choices? Do You Have Any Cultural Practices That No May Affect Your HC Choices? Spiritual Referral None Comment onur Who Can We Speak to About Patient's Care Family, friends Identifying Code for Release of Patient Declines to issue Information Health Care Proxy/Next of Kin Herlinda () Health Care Proxy Emergency Contact Name Herlinda () Emergency Contact Advance Directives? No: Declines further information Power of Production Planning Supervisor No PAC Instructions Do not shave/clip surgical site Medications to take/avoid Nasal antibiotic No ETOH/petroleum product on skin DOS Pre-surgical wash Sturdy shoes/comfortable clothes Do not bring valuables and remove jewelry
--- NOTE | 2018-07-28 14:51 | PT.IPTN ---
Current Diagnoses Other spondylosis with myelopathy, cervical region (07/27/18) Radiculopathy, cervical region (07/27/18) Surgery Performed Operation Date: 07/27/18 09:15 Actual Procedures p C4-5, C5-6, C7T1 Anterior cervical discectomy & fusion w/Posterior Instru.(Not Applicable) - Koko More MD Physical Therapy Treatment Note M2 PT-IP Current Condition Start: 07/28/18 11:28 Freq: NEEDED Status: Active Protocol: Document 07/28/18 08:54 (Rec: 07/28/18 12:28 [email or web address]) Physical Therapy Current Condition Current Condition Evaluation Date 07/28/18 Treatment Diagnosis C spine discectomy/fusion; difficulty walking Onset Date 07/27/18 Precautions Cervical Spine Precautions Soft Collar for Comfort No Heavy Lifting Log Roll Brace Soft collar M3 PT-IP Subjective Start: 07/28/18 11:28 Freq: NEEDED Status: Active Protocol: Document 07/28/18 13:10 GGD (Rec: 07/28/18 14:50 GGD [id number]) Subjective Physical Therapy Visit Type Type Patient Refusal Notes Pt refused states that he has a head and is nauseous. Other Recommendations and Next Treatment Stair climbing. Ambulation Focus with least restrictive device (last session used fww but pt likely to progress to no AD) Recommendations To Nursing Amount of Assist Needed 1 Person Assist Discharge Recommendations PT Discharge Recommendations Home with 24/ Assist
[2018-07-28] MEDS: HYDROCODONE/ACET 5/325 TABLET 1 TAB PO (15:45)
[2018-07-28] MEDS: DEXAMETHASONE 10 MG/ML VIAL IV (15:46)
--- NOTE | 2018-07-28 16:08 | PC.NURSE ---
Addendum entered by Tana Da Silva R.N. 07/28/18 22:03: Pt states H/A is gradually decreasing. Med at 1830 w/ valium and oxycodone w. some relief. SBA to BR w/o incidence. HL intact/patent. Dsgs remain CDI. B/Ps =157/104 @ 1750; 148/90 @ 2100. Call light w/in reach, bed alarm on for pt safety. Stable post op cource. Continue w/plan of care. Original Note: Addendum entered by Tana Da Silva R.N. 07/28/18 17:18: Med at this time w/zofran for nausea and 200cc emesis. Original Note: Pt continues w/ c/o left sided headache. Orders reiceved for Decadron 10mg IV x 1. Med for pain w/ [place] at this time. Dsg to anterior neck CDI. Soft collar in place. Call light w/in reach, family in room.
[2018-07-28] MEDS: ONDANSETRON 4 MG/2 ML INJ IV (17:09)
[2018-07-28] MEDS: diazePAM 5 MG TABLET PO (18:32)
[2018-07-28] MEDS: OXYCODONE IR 5 MG TABLET PO (18:32)
[2018-07-28] MEDS: GABAPENTIN 300 MG CAPSULE PO (21:18)
[2018-07-28] MEDS: SENNOSIDES 8.6 MG TABLET 17.2 MG PO (21:18)
[2018-07-29] VITALS (7 sets, daily range): BP systolic 138–149; BP diastolic 82–107; PULSE 70–84; RESP 16; TEMP 36.3–36.7; O2SAT 93–98
[2018-07-29] MEDS: OXYCODONE IR 5 MG TABLET PO (00:18)
[2018-07-29] MEDS: diazePAM 5 MG TABLET PO (00:19)
--- NOTE | 2018-07-29 07:00 | PM.PNPO.1 ---
Subjective Date Patient Seen: 07/29/18 Time Patient Seen: 07:00 Interval history: Doing much better today. No more headaches. Pain about 3/10. 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 Exam Vital Signs (past 8 hours): - 07/29/18 00:15 07/29/18 04:15 Temperature 98.0 F 97.4 F L Pulse Rate 70 78 Respiratory Rate 16 16 Blood Pressure 138/82 146/94 H Pulse Oximetry 93 94 Oxygen Delivery Method Room Air Oxygen Flow Rate 0 Back/Spine/Pelvis Other: Dressing CDI. 5/5 motor both upper extremities except for 2/5 left intrinsic and 4/5 left combatant diver officer Assessment & Plan Post-op Postoperative Procedures Operation Date: 07/27/18 09:15 Actual Procedures Side Surgeon p C4-5, C5-6, C7T1 Anterior cervical discectomy & fusion w/Posterior Instru. Not Applicable Koko More MD He is doing well. Will discharge home today.
--- NOTE | 2018-07-29 07:01 | PM.DS.1 ---
History of Present Illness Date Patient Seen: 07/29/18 Time Patient Seen: 07:01 Chief complaint: [id number] Narrative: 58-year-old male with cervical myelopathy and progressive weakness into the left arm Discharge Providers Date of admission: 07/27/18 07:45 Primary care physician: Cruz Morocho MD Consults: 07/27/18 14:44 Consult to Occupational Therapy Evaluate & Treat Comment: Physician Instructions: Evaluate and treat Consult to Physical Therapy Evaluate & Treat Comment: Physician Instructions: Evaluate and Treat Consult to Speech Therapy Evaluate & Treat Comment: s/p 3 level ACDF Physician Instructions: Evaluate and treat Discharge provider: Koko More MD Discharge Date: 07/29/18 Summary Discharge Diagnosis: Cervical myelopathy Hospital Course: He was admitted on 07/27/18 for a C4 C4-5, C5-6 and C7-T1 anterior posterior fusion. First postoperative day he had significant issues with pain control, significant headaches, and high blood pressure. As his pain control improved, the blood pressure lowered and headaches went away. Status at Discharge Cognitive/behavioral status at discharge: Stable Functional status at discharge: independent ambulation Overall status at discharge: patient is progressing back to baseline Time Spent with Patient Less than 30 minutes Exam Vital Signs (past 8 hours): - 07/29/18 00:15 07/29/18 04:15 Temperature 98.0 F 97.4 F L Pulse Rate 70 78 Respiratory Rate 16 16 Blood Pressure 138/82 146/94 H Pulse Oximetry 93 94 Oxygen Delivery Method Room Air Oxygen Flow Rate 0 Const Orientation: alert and oriented x3 Back/Spine/Pelvis Other: Dressing CDI. 5/5 motor both upper extremities except for 2/5 left intrinsics and 4/5 left great Discharge Plan Discharge Plan Patient Disposition: Home Discharge comment: f/u 1.5 wks Discharge Med Rec/Prescriptions Prescriptions: New oxycodone 5 mg Tablet See Label Instructions .ROUTE .COMPLEX PRN (Reason: Pain, Moderate (4-6)) Qty: 30 RF: 0 diazepam 5 mg Tablet 5 mg PO Q6HR PRN (Reason: spasms) Qty: 20 RF: 0 Provider Discharge Instructions Activity: 10 lbs max lift, soft collar for comfort Skin/Wound/Dressing Care Dressing: may change dressings and shower POD#5 Discharge Data Primary Care Provider: Cruz Morocho Attending Provider: Koko More Admjaimie Date/Time: 07/27/18 07:45
[2018-07-29] MEDS: OXYCODONE IR 5 MG TABLET 10 MG PO ×2 (09:21→12:53)
[2018-07-29] MEDS: DOCUSATE 100 MG CAPSULE PO (09:22)
[2018-07-29] MEDS: CELECOXIB 200 MG CAPSULE PO (09:22)
--- NOTE | 2018-07-29 10:15 | PT.IPTN ---
Current Diagnoses Other spondylosis with myelopathy, cervical region (07/27/18) Radiculopathy, cervical region (07/27/18) Surgery Performed Operation Date: 07/27/18 09:15 Actual Procedures p C4-5, C5-6, C7T1 Anterior cervical discectomy & fusion w/Posterior Instru.(Not Applicable) - Koko More MD Physical Therapy Treatment Note M2 PT-IP Current Condition Start: 07/28/18 11:28 Freq: NEEDED Status: Active Protocol: Document 07/28/18 08:54 (Rec: 07/28/18 12:28 [email or web address]) Physical Therapy Current Condition Current Condition Evaluation Date 07/28/18 Treatment Diagnosis C spine discectomy/fusion; difficulty walking Onset Date 07/27/18 Precautions Cervical Spine Precautions Soft Collar for Comfort No Heavy Lifting Log Roll Brace Soft collar M3 PT-IP Subjective Start: 07/28/18 11:28 Freq: NEEDED Status: Active Protocol: Document 07/29/18 10:15 GGD (Rec: 07/29/18 11:37 GGD [id number]) Subjective Physical Therapy Visit Type Type Treatment Note Visit Start Time 09:50 Visit Stop Time 10:15 Total Visit Minutes 25 Number of DECORATING SUPERVISOR Visits 1 Physical Therapy Visit Comments Patient Comments Pt states he is feeling better . Therapy Pain Assessment Pain When Pain Assessed At Rest Pain Present Pain Present Pain Reported Location Head Intensity 4 Scale Used Numeric (1 - 10) M4 PT-IP Mobility and Gait Start: 07/28/18 11:28 Freq: NEEDED Status: Active Protocol: Document 07/29/18 10:15 GGD (Rec: 07/29/18 11:37 GGD [id number]) PT-Transfer Assessment Sit to and From Stand Sit to and from Stand Standby Assistance Equipment Transfer Assistive Device Gait Belt Front Wheeled Walker Orthotic/Prosthetic Devices or Brace: Yes Transfers Transfer Destination Chair Gait Assessment Gait Gait Assistance Required: Standby Assistance Distance (Feet) 300 Able to Maintain Weight Bearing Status Yes During Gait Assistive Devices Assistive Device Gait Belt Orthotic/Prosthetic Devices or Brace: No Gait Deviations General Gait Pattern Within Normal Limits Factors Limiting Gait Function Factors Limiting Gait Function Decreased Activity Tolerance Decreased Strength Limited Range of Motion Pain Poor Balance Poor Safety Awareness Stair Climbing Assessment Evaluation Level of Assist On Stairs Standby Assistance Devices Stair Climbing Assistive Devices Right Railing Technique/Endurance Stair Climbing Direction Ascend and Descend Stair Climbing Technique Step Over Step Number of Steps Climbed 3 Query Text: Stair Climbing Set # Repetitions (reps) 3 M5 PT-IP Objective Assessments Start: 07/28/18 11:28 Freq: NEEDED Status: Active Protocol: Document 07/28/18 08:54 (Rec: 07/28/18 12:28 [email or web address]) Orientation Orientation/Cognition Level of Alertness Alert Orientation Name Age Birthday Month Date Year Day of Week Place Situation Safety Awareness Decreased Safety Awareness Gross Range of Motion Lower Extremity ROM Assessment Within Functional Limits Strength Upper Extremity Strength Assessment Left Impaired Lower Extremity Strength Assessment Within Functional Limits Comments Strength Comments 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 Sensation Assessment Sensation Gross Sensation Left UE Impaired Sensation Description Tingling Comments Sensation Comments Pt states slight tingling in LUE; however he reports significanly decreased compared to prior surgery. M6 PT-IP Treatment Start: 07/28/18 11:28 Freq: NEEDED Status: Active Protocol: Document 07/29/18 10:15 GGD (Rec: 07/29/18 11:37 GGD [id number]) Physical Therapy Treatment Education Education Provided Precautions M7 PT-IP Assessment and Plan Start: 07/28/18 11:28 Freq: NEEDED Status: Active Protocol: Document 07/29/18 10:15 GGD (Rec: 07/29/18 11:37 GGD [id number]) PT Summary Assessment and Plan Summary Assessment Summary Pt improving with mobility. He was able to safely ambulated without assistive device. He was safe and stable with stair mobility. He had no unsteadiness or LOB with mobility. Frequency of Treatment Frequency Of Treatment Twice a Day Treatment Plan Other Recommendations and Next Treatment Stair climbing. ambulation Focus Recommendations To Nursing Amount of Assist Needed 1 Person Assist Discharge Recommendations PT Discharge Recommendations Home with Assistance
--- NOTE | 2018-07-29 11:07 | OT.IP.TRT ---
Current Diagnoses Other spondylosis with myelopathy, cervical region (07/27/18) Radiculopathy, cervical region (07/27/18) Surgery Performed Operation Date: 07/27/18 09:15 Actual Procedures p C4-5, C5-6, C7T1 Anterior cervical discectomy & fusion w/Posterior Instru.(Not Applicable) - Koko More MD Occupational Therapy Treatment Note M3 OT- IP Subjective and Pain Start: 07/28/18 15:17 Freq: Status: Active Protocol: Document 07/29/18 11:07 PJM (Rec: 07/29/18 17:45 PJM [email or web address]) OT- Subjective Occupational Therapy Visit Type Type Treatment Note Visit Start Time 11:06 Visit Stop Time 11:07 Total Visit Minutes 61 Notes Pt's here for education this session Occupational Therapy Visit Comments Patient Comments I am feeling better today. Patient/Caregiver Goals to go home today, return to light duty work in 2-3 weeks OT Pain Assessment Pain When Pain Assessed After Treatment Pain Present Pain Present Pain Reported Location Head Intensity 4 Scale Used Numeric (1 - 10) Description Aching Acute M4 OT- IP ADL's Start: 07/28/18 15:17 Freq: Status: Active Protocol: Document 07/29/18 11:07 PJM (Rec: 07/29/18 17:45 PJM [email or web address]) OT QQS-[id number] General Evaluation Self-Feeding Ability Independent OT ADL-Grooming General Evaluation Grooming Ability Independent Comments OT Grooming Comments standing at sink after education re: body mechanics OT ADL-Oral Care General Eval Oral Care Ability Independent Areas of Assistance Brushing Teeth Devices Oral Care Devices Toothbrush Comments Oral Care Comments standing at sink after education re: body mechanics OT ADL-Dressing General Eval Upper Body Dressing Ability Independent Assistive Devices Dressing Assistive Devices Button Hook Comments OT Dressing Comments after education re: body mechanics and use of button hook to button independently due to L hand weakness. will order button hook. Also provided education re: modification of button of vianney to increase indep in fastening it. Pt wearing slip on shoes today. OT ADL-Toileting General Evaluation Toileting Ability Independent OT ADL-Bathing Bathing Type Bathing Type Shower General Evaluation Bathing Ability Minimal Assistance Comments OT Bathing Comments Pt/ educated re: body mechanics and methods to keep incisions dry. Pt able to shower with min assist from after education. M7 OT- IP Mobility and Balance Start: 07/28/18 15:17 Freq: Status: Active Protocol: Document 07/29/18 11:07 PJM (Rec: 07/29/18 17:45 PJM [email or web address]) OT-Transfer Assessment Sit to and From Stand Sit to and from Stand Independent Transfers Transfer Ability Independent Standby Assistance Technique Transfer Destination Car Chair Shower Stall Toilet Transfer Technique Stand Step Pivot Devices Transfer Assistive Devices None Comments Mobility Comments Pt ambulating in room without a device; SBA for step into shower stall; otherwise indep with transfers. Education provided re: car transfer technique. OT- Gait Assessment Gait Gait Assistance Required: Independent Distance (Feet) 25 Assistive Devices Assistive Device None OT- Balance Assessment Sitting Balance and Reactions Static Sitting Balance Ability Good Dynamic Sitting Balance Ability Good Standing Balance and Reactions Static Standing Balance Ability Good Dynamic Standing Balance Ability Good M8 OT- IP Objective Assessments Start: 07/28/18 15:17 Freq: Status: Active Protocol: Document 07/29/18 11:07 PJM (Rec: 07/29/18 17:48 PJM [email or web address]) OT Gross Range of Motion Upper Extremity Range of Motion Assessment Left Impaired ROM Impairments finger and thumb AROM remain decreased due to weakness with significant intrinsic atrophy noted OT Strength Comments Strength Comments Provided education re: 3 L hand strengthening exercises for gross desk monitor strength with red theraputty, pinch strength with less resistive yellow putty and funger extension with red putty. Pt demonstrates all exercises correctly. M9 OT- IP Assessment and Plan Start: 07/28/18 15:17 Freq: Status: Active Protocol: Document 07/29/18 11:07 PJM (Rec: 07/29/18 17:45 PJM [email or web address]) OT Summary Assessment and Plan Potential Rehabilitation Potential Good Summary Progress Towards Goals Safe For Discharge Goals Met Assessment Summary All OT education completed with pt/ today re: adapted ADL techniques, L hand strengthening exercises with yellow/red theraputty, use of button hook. Pt/ verbalize and demonstrate understanding of all education. Pt plans to d/c home today with assist from supportive, capable . Recommend out pt hand therapy to increase L hand strength, functional use when MD permits . Pt may benefit from short opponens splint on L hand to stabilize thumb for functional pinch if weakness in in MP/IP flexion persists. Frequency of Treatment Frequency Of Treatment Discharge Discharge Recommendations OT Discharge Recommendations Home with Assistance Other Discharge Recommendations out pt hand therapy followup when MD permits
--- NOTE | 2018-07-29 12:50 | CM.DPC ---
DCP/discharge Per MD patient to discharge home today. Met with patient and spouse: both agreeable to discharge. No discharge needs at this time. Plan: Discharge home today with OP PT and supportive family.
--- NOTE | 2018-07-29 13:42 | PC.NURSE ---
Discharge: Feels ready for d/c home except bp concerns. This am diastolic bp was 102 and then later came down. PA was made aware and they have known pt has had bp problems for the last several days. At noon rt diastolic was 107 (148/107), lt was 91 (144/91). Offered to call PA/MD back again. SThey have known about it for days and they don't seem worried at all. They are not doing anything. Pt/spouse are requesting to have Dr. Morocho called instead (his pcp) and see if an appointment can be scheduled. Dr. Adkins office called and staff was notified of BP concerns by pt and spouse. They will schedule an appointment for pt and call him at home. If the nurse has any questions she will call this sheet writer back. As far as his neck surgery goes he was given final d/c instructions by OT/PT and PA. Reviewed d/c instructions for home for his neck and constipation. Spouse got rx early and has those. Dressing was changed to the post neck and given an extra dressing if needed until spouse can get some extra's. Discussed wound care. Questions answered. Pt feels he can go home with these measures in place. Pt d/c home via auto w/spouse.
== END 2018-07-29 17:41 | disposition home or self-care (01) | DRG 454 ==
PROVIDERS: Admitting Provider Orthopaedic Surgery; PCP Family Medicine; Visit Provider Orthopaedic Surgery
PROC: 0RG20J1 Fusion of 2 or more Cervical Vertebral Joints with Synthetic Substitute, Posterior Approach, Posterior Column, Open Approach (ICD-10-PCS; principal; 2018-07-27 09:15)
DX: M48.02 Spinal stenosis, cervical region (principal); G99.2 Myelopathy in diseases classified elsewhere; R51 Headache; R03.0 Elevated blood-pressure reading, without diagnosis of hypertension
CPT/HCPCS: 72040; 76001; 94760; 97110; 97116; 97161; 97165; 97530; 97535; C1776; J0690; J1100; J1170; J2405; J2704; J3010

== ENCOUNTER → 2019-05-20 09:35 | Outpatient (CLI) | payer OTHER, SELFPAY ==
[2018-07-27 19:15] VITALS: BMI 27.0
[2019-05-20 09:53] LABS: Add Manual Diff / Slide Review NO; Basophils Absolute Auto 0 /uL (0-100); Basophils Percent Auto 1.1 % (0-2); Eosinophils Absolute Auto 200 /uL (0-450); Eosinophils Percent Auto 4.6 % (2-4); Hematocrit 42.7 % (41-53); Hemoglobin 14.9 g/dL (13.5-17.5); Lymphocytes Absolute Auto 1000 /uL (1100-4500); Lymphocytes Percent Auto 27.5 % (25-40); Mean Corpuscular Hemoglobin 32.8 PG (26-34); Monocytes Absolute Auto 400 /uL (0-900); Monocytes Percent Auto 10.8 % (3-14); Neutrophils Absolute Auto 2100 /uL (1500-7000); Platelet Count 167 X10^3/uL (150-400); Red Blood Cell Count 4.55 X10^6/uL (4.5-5.9); White Blood Cell Count 3.7 X10^3/uL (4.5-11.0)
[2019-05-20 10:07] LABS: Alanine Aminotransferase 34 IU/L (21-72); Albumin 4.6 g/dL (3.5-5.0); Albumin Globulin Ratio 1.5 (1.0-2.8); Alkaline Phosphatase 65 U/L (38-126); Aspartate Aminotransferase 35 IU/L (17-59); BUN Creatinine Ratio 17.5 (6-22); Bilirubin Total 1.3 mg/dL (0.2-1.3); Blood Urea Nitrogen 14 mg/dL (9-20); Calcium 9.2 mg/dL (8.4-10.2); Carbon Dioxide 28 mmol/L (22-32); Chloride 103 mmol/L (98-107); Cholesterol 169 mg/dL (140-199); Estimated Glomerular Filt Rate > 60.0 mL/min (>60); Globulin 3.1 g/dL (1.7-4.1); Glucose 95 mg/dL (70-100); HDL Cholesterol 37 mg/dL (40-60); HEMOLYSIS < 15 (0-50); LDL Cholesterol Calculated 101 mg/dL (<100); Potassium 4.4 mmol/L (3.4-5.1); Sodium 141 mmol/L (137-145); Total Protein 7.7 g/dL (6.3-8.2); Triglycerides 153 mg/dL (35-150)
[2019-05-20 10:52] LABS: Thyroid Stimulating Hormone 0.85 uIU/mL (0.47-4.68)
== END ==
PROVIDERS: PCP Family Medicine; Visit Provider Family Medicine
DX: R03.0 Elevated blood-pressure reading, without diagnosis of hypertension (principal); Z12.5 Encounter for screening for malignant neoplasm of prostate; Z13.1 Encounter for screening for diabetes mellitus; Z13.220 Encounter for screening for lipoid disorders; Z13.29 Encounter for screening for other suspected endocrine disorder; Z13.6 Encounter for screening for cardiovascular disorders
CPT/HCPCS: 36415; 80053; 80061; 84443; 85025; G0103

== ENCOUNTER → 2020-03-15 15:24 | Outpatient (CLI) | payer OTHER, SELFPAY ==
[2018-07-27 19:15] VITALS: BMI 27.0
[2020-03-15 16:35] LABS: Add Manual Diff / Slide Review NO; Basophils Absolute Auto 100 /uL (0-100); Basophils Percent Auto 1.1 % (0-2); Eosinophils Absolute Auto 200 /uL (0-450); Eosinophils Percent Auto 3.8 % (2-4); Hematocrit 42.4 % (41-53); Hemoglobin 14.8 g/dL (13.5-17.5); Lymphocytes Absolute Auto 1200 /uL (1100-4500); Lymphocytes Percent Auto 23.9 % (25-40); Mean Corpuscular Hemoglobin 32.7 PG (26-34); Mean Corpuscular Volume 93.6 fL (80-100); Monocytes Absolute Auto 400 /uL (0-900); Monocytes Percent Auto 7.4 % (3-14); Neutrophils Absolute Auto 3200 /uL (1500-7000); Neutrophils Percent Auto 63.8 % (50-75); Platelet Count 183 X10^3/uL (150-400); Red Blood Cell Count 4.53 X10^6/uL (4.5-5.9)
[2020-03-15 16:40] LABS: Alanine Aminotransferase 25 IU/L (<50); Albumin 4.9 g/dL (3.5-5.0); Albumin Globulin Ratio 1.7 (1.0-2.8); Alkaline Phosphatase 67 U/L (38-126); Amylase 61 U/L (30-110); Aspartate Aminotransferase 34 IU/L (17-59); BUN Creatinine Ratio 19.5 (6-22); Bilirubin Total 1.3 mg/dL (0.2-1.3); Blood Urea Nitrogen 16 mg/dL (9-20); Calcium 9.9 mg/dL (8.4-10.2); Carbon Dioxide 28 mmol/L (22-32); Chloride 102 mmol/L (98-107); Estimated Glomerular Filt Rate > 60.0 mL/min (>60); Globulin 2.9 g/dL (1.7-4.1); Glucose 85 mg/dL (80-110); HEMOLYSIS < 15 (0-50); Lipase 70 U/L (23-300); Potassium 4.7 mmol/L (3.4-5.1); Sodium 139 mmol/L (137-145); Total Protein 7.8 g/dL (6.3-8.2)
== END ==
PROVIDERS: PCP Family Medicine; Referring Provider Family Medicine; Visit Provider Family Medicine
DX: R10.32 Left lower quadrant pain (principal)
CPT/HCPCS: 36415; 80053; 82150; 83690; 85025

== ENCOUNTER → 2020-03-22 14:43 | Outpatient (CLI) | payer OTHER, SELFPAY ==
[2018-07-27 19:15] VITALS: BMI 27.0
--- NOTE | 2020-03-22 14:44 | DI.CT.S_ITS ---
PROCEDURE: CT ABDOMEN PELVIS WO/W CON INDICATIONS: Left lower quadrant pain TECHNIQUE: After the administration of oral contrast, 5 mm thick sections acquired from the diaphragms to the iliac crests. After the administration of intravenous contrast, 5 mm thick sections acquired from the diaphragms to the symphysis. 5 mm thick coronal and sagittal reformats were acquired. For radiation dose reduction, the following was used: automated exposure control, adjustment of mA and/or kV according to patient size. COMPARISON: None. FINDINGS: Image quality: Excellent. ABDOMEN: Lung bases: Lung bases are clear. Heart size is normal. Solid organs: Liver is normal in size and enhancement. Gallbladder is contracted. Biliary system is non-dilated. Pancreas enhances normally. Spleen is normal in size and enhancement. No adrenal nodules. Both kidneys are normal in size. No hydronephrosis or nephrolithiasis. Bowel and peritoneum: Stomach, small and large bowel loops are normal in caliber and wall thickness. No free fluid or air. Nodes and vessels: No retroperitoneal or mesenteric adenopathy by size criteria. Aorta and inferior vena are normal in caliber. Miscellaneous: No ventral hernias. PELVIS: Genitourinary: Bladder wall thickness is normal. Miscellaneous: No inguinal hernias or adenopathy. There is sigmoid diverticulosis but no definite focus of acute diverticulitis. Bones: No suspicious bony lesions. No vertebral body compression fractures. IMPRESSION: 1. No urinary tract stone or inflammation is found. 2. Sigmoid diverticulosis is present but no definite adjacent acute diverticulitis is identified. A source of left lower quadrant pain has not been found. Dictated by: Kvng Riddle M.D. on 03/22/2020 at 15:57 Approved by: Kvng Riddle M.D. on 03/22/2020 at 16:00
== END ==
PROVIDERS: PCP Family Medicine; Referring Provider Family Medicine; Visit Provider Family Medicine
DX: R10.32 Left lower quadrant pain (principal); K57.30 Diverticulosis of large intestine without perforation or abscess without bleeding
CPT/HCPCS: 74178; Q9967

== ENCOUNTER → 2020-12-12 10:30 | Outpatient (CLI) | payer OTHER, SELFPAY ==
[2018-07-27 19:15] VITALS: BMI 27.0
[2020-12-12] MEDS: COVID-19 VACC #1, MRNA(MOD) 100 MCG/0.5 ML VIAL IM (10:36)
== END ==
PROVIDERS: PCP Family Medicine; Visit Provider Internal Medicine
DX: Z23 Encounter for immunization (principal)
CPT/HCPCS: 0011A; 91301

== ENCOUNTER → 2021-01-09 14:24 | Outpatient (CLI) | payer OTHER, SELFPAY ==
[2018-07-27 19:15] VITALS: BMI 27.0
[2021-01-09] MEDS: COVID-19 VACC #2, MRNA(MOD) 100 MCG/0.5 ML VIAL IM (14:28)
== END ==
PROVIDERS: PCP Family Medicine; Visit Provider Internal Medicine
DX: Z23 Encounter for immunization (principal)
CPT/HCPCS: 0012A; 91301